=== PATIENT | male | born 1935 | race Caucasian/White ===

== ENCOUNTER 2016-09-30 11:25 | Outpatient (CLI) | payer OTHER ==
[2016-09-30 19:32] LABS: BASOPHILS % (AUTO) 0.8 %; EOSINOPHILS # (AUTO) 0.1 10^3/uL (0.0-0.7); EOSINOPHILS % (AUTO) 1.5 %; HGB - HEMOGLOBIN 14.3 g/dL (14.0-18.0); LYMPHOCYTES # (AUTO) 1.2 10^3/uL (1.5-3.5); MEAN CORPUSCULAR HEMOGLOBIN 33.5 pg (27.0-31.0); MEAN CORPUSCULAR HGB CONC 33.2 g/dL (32.0-36.0); MEAN CORPUSCULAR VOLUME 100.9 fL (80.0-94.0); MONOCYTES # (AUTO) 0.5 10^3/uL (0.0-1.0); MONOCYTES % (AUTO) 11.3 %; NEUTROPHILS # (AUTO) 2.9 10^3/uL (1.5-6.6); NEUTROPHILS % (AUTO) 61.4 %; NUCLEATED RED BLOOD CELLS AUTO 0.1 /100WBC; RED BLOOD COUNT 4.26 10^6/uL (4.70-6.10); RED CELL DISTRIBUTION WIDTH 13.6 % (12.0-15.0); UNCORRECTED WHITE BLOOD COUNT 4.7 x10^3/uL; WHITE BLOOD COUNT 4.7 x10^3/uL (4.8-10.8)
[2016-09-30 20:15] LABS: BILIRUBIN,TOTAL 0.7 mg/dL (0.2-1.0); BUN - BLOOD UREA NITROGEN 19 mg/dL (6-20); CALCIUM 8.8 mg/dL (8.5-10.3); CARBON DIOXIDE - CO2 31 mmol/L (21-32); CHLORIDE 103 mmol/L (101-111); GFR - MDRD 72 (>89); GLUCOSE 65 mg/dL (70-100); POTASSIUM 4.3 mmol/L (3.5-5.0); SODIUM 141 mmol/L (135-145); TOTAL PROTEIN 6.1 g/dL (6.7-8.2)
== END 2016-09-30 11:26 | disposition home or self-care (01) ==
LOC: LAB.F 11:25
PROVIDERS: ATTEND Internal Medicine
DX: I25.10 Atherosclerotic heart disease of native coronary artery without angina pectoris (principal); I48.91 Unspecified atrial fibrillation
CPT/HCPCS: 36415; 80053; 84443; 85025

== ENCOUNTER 2016-10-04 14:24 | Outpatient (CLI) | payer OTHER ==
[2016-10-04 19:25] LABS: IMMATURE RETIC FRACTION 0.29; RED BLOOD COUNT 4.5 10^6/uL (4.70-6.10)
[2016-10-04 19:28] LABS: FOLATE 18.31 ng/mL (5.90 - >24.8)
== END 2016-10-04 14:25 | disposition home or self-care (01) ==
LOC: LAB.F 14:24
PROVIDERS: ATTEND Internal Medicine
DX: D75.89 Other specified diseases of blood and blood-forming organs (principal)
CPT/HCPCS: 36415; 82607; 82746; 85044

== ENCOUNTER 2017-01-31 08:44 | Outpatient (CLI) | payer OTHER ==
[2017-01-31 11:51] LABS: BASOPHILS % (AUTO) 0.6 %; EOSINOPHILS # (AUTO) 0.1 10^3/uL (0.0-0.7); EOSINOPHILS % (AUTO) 2.4 %; HCT - HEMATOCRIT 43.1 % (42.0-52.0); HGB - HEMOGLOBIN 14.5 g/dL (14.0-18.0); LYMPHOCYTES # (AUTO) 1.1 10^3/uL (1.5-3.5); LYMPHOCYTES % (AUTO) 22.8 %; MEAN CORPUSCULAR HGB CONC 33.7 g/dL (32.0-36.0); MEAN CORPUSCULAR VOLUME 97.9 fL (80.0-94.0); MEAN PLATELET VOLUME 7.9 fL (7.4-11.4); MONOCYTES # (AUTO) 0.5 10^3/uL (0.0-1.0); MONOCYTES % (AUTO) 10.2 %; NEUTROPHILS # (AUTO) 3.1 10^3/uL (1.5-6.6); NUCLEATED RED BLOOD CELLS AUTO 0.1 /100WBC; RED CELL DISTRIBUTION WIDTH 12.9 % (12.0-15.0); UNCORRECTED WHITE BLOOD COUNT 4.9 x10^3/uL; WHITE BLOOD COUNT 4.9 x10^3/uL (4.8-10.8)
[2017-01-31 11:58] LABS: ALBUMIN/GLOBULIN RATIO 1.8 (1.0-2.2); BILIRUBIN,TOTAL 0.8 mg/dL (0.2-1.0); CALCIUM 8.6 mg/dL (8.5-10.3); CREATININE 0.9 mg/dL (0.6-1.2); POTASSIUM 4.1 mmol/L (3.5-5.0); TOTAL PROTEIN 6.2 g/dL (6.7-8.2)
[2017-01-31 12:02] LABS: BILIRUBIN,URINE NEGATIVE (NEGATIVE)
[2017-01-31 12:14] LABS: WBC,URINE 0-3 /HPF (0-3)
[2017-01-31 12:15] LABS: UR CULTURE IF IND NOT INDICATED
== END 2017-01-31 08:45 | disposition home or self-care (01) ==
LOC: LAB.F 08:44
PROVIDERS: ATTEND Internal Medicine
DX: F02.81 Dementia in other diseases classified elsewhere, unspecified severity, with behavioral disturbance (principal); Z79.899 Other long term (current) drug therapy
CPT/HCPCS: 36415; 80053; 80306; 81001; 84443; 85025; 87086

== ENCOUNTER 2017-04-07 08:00 | Outpatient (CLI) | payer OTHER | END 2017-04-07 08:01 | disposition home or self-care (01) | LOC: LAB.R 08:00 | PROVIDERS: ATTEND Internal Medicine | DX: R60.0 Localized edema (principal) | CPT/HCPCS: 85379 ==

== ENCOUNTER 2017-05-21 13:46 | Emergency (ER) | payer OTHER, MEDICARE ==
[2017-05-21 14:09] VITALS: BP 125/73
[2017-05-21] MEDS ORDERED: cefTRIAXone 1 GM VIAL IM STA (15:00)
[2017-05-21] MEDS ORDERED: LIDOCAINE 1% 2 ML VIAL SUBQ ONE (15:00)
--- NOTE | 2017-05-21 15:02 | ED Physician Documentation ---
History of Present Illness - Stated complaint Stated Complaint: RT LEG SWELLING/REDNESS - Chief complaint Chief Complaint: General - History obtained from History obtained from: Patient, Family (The patient has dementia and the history is taken mostly from the .) - History of Present Illness Timing: Yesterday - Additonal information Additional information: 81-year-old male with a prior history of cellulitis to his right lower extremity has developed an increase in swelling and redness to his right leg beginning yesterday. His noted a little bit of swelling around his knee which is not normal for him. He does have some venous stasis disease with redness to the lower extremity with swelling that is chronic. The difference now is involvement around the knee and above the knee. The notes that when he was standing after being in the shower that the redness extended to the proximal thigh today and he has never had redness extending into his thigh. Review of Systems Unable to obtain: Dementia (History taken from the ) Constitutional: denies: Fever Eyes: denies: Decreased vision Ears: reports: Loss of hearing. denies: Ear pain Nose: denies: Congestion Throat: denies: Sore throat Cardiac: denies: Palpitations Respiratory: denies: Dyspnea, Cough GI: denies: Abdominal Pain, Nausea, Vomiting : denies: Dysuria, Frequency Skin: denies: Rash Musculoskeletal: reports: Extremity swelling. denies: Neck pain, Back pain, Extremity pain Neurologic: denies: Generalized weakness, Focal weakness, Numbness PD PAST MEDICAL HISTORY - Past Medical History Cardiovascular: Hypertension, Coronary artery disease, Atrial fibrillation Neuro: Dementia - Past Surgical History Past Surgical History: Yes Cardiovascular: Coronary stent, Pacemaker - Present Medications Home Medications: Ambulatory Orders Medication Instructions Recorded Confirmed Diltiazem HCl [Cardizem LA] 300 mg PO DAILY 07/14/14 03/13/16 Escitalopram [Lexapro] 10 mg PO DAILY 07/14/14 03/13/16 Ramipril [Altace] 5 mg PO DAILY 07/14/14 03/13/16 Rivaroxaban [Xarelto] 20 mg PO DAILY 02/07/16 03/13/16 Amox/Clav 875/125 [Augmentin] 1 each PO Q12H #14 tablet 05/21/17 OLANZapine [Zyprexa] 05/21/17 clonazePAM [Clonazepam] 05/21/17 - Allergies Allergies/Adverse Reactions: Allergies Allergy/AdvReac Type Severity Reaction Status Date / Time morphine Allergy Unknown Verified 05/21/17 14:09 - Social History Does the pt smoke?: No Smoking Status: Never smoker Does the pt drink ETOH?: No Does the pt have substance abuse?: No - Immunizations Immunizations are current?: Yes - POLST Patient has POLST: Yes PD ED PE NORMAL - Vitals Vital signs reviewed: Yes - General General: No acute distress, Well developed/nourished - HEENT HEENT: Atraumatic, PERRL - Respiratory Respiratory: No respiratory distress - Derm Derm: Normal color, Warm and dry - Extremities Extremities: No deformity, Other (There is trace edema bilaterally to the feet which are mildly reddened with slow capillary refill. This does not appear to be the typical blanching of infection. At the knee and above there is some subtle erythema that is more evident when the patient standing and more evident distally to the medial aspect of the knee. This extends to the mid portion of the thigh and this is marked with a surgical marker.) - Neuro Neuro: No motor deficit, No sensory deficit Eye Opening: Spontaneous Motor: Obeys Commands Verbal: Oriented GCS Score: 15 - Psych Psych: Normal mood, Normal affect Results - Vitals Vitals: Vital Signs - 24 hr 05/21/17 14:04 Temperature 37.1 C Heart Rate 70 Respiratory 18 Rate Blood Pressure 125/73 O2 Saturation 97 Oxygen O2 Source Room air PD MEDICAL DECISION MAKING - ED course Complexity details: considered differential, d/w patient, d/w family ED course: 81-year-old male with new onset of redness and swelling to the distal right thigh may have acute cellulitis. He is administered Rocephin 1 g IM here and we will place him on some Augmentin. I discussed with his monitoring the margins drawn on the leg and returning for redness extending beyond the margins. Departure - Departure Disposition: 01 Home, Self Care Clinical Impression: Cellulitis Qualifiers: Site of cellulitis: extremity Site of cellulitis of extremity: lower extremity Laterality: right Qualified Code(s): L03.115 - Cellulitis of right lower limb Condition: Stable Instructions: ED Infec Skin Cellulitis Follow-Up: Devin Rojas MD [Primary Care Provider] - Prescriptions: Amox/Clav 875/125 [Augmentin] 1 each PO Q12H #14 tablet
== END 2017-05-21 15:30 | disposition home or self-care (01) ==
LOC: ED 13:46
DX: L03.115 Cellulitis of right lower limb (principal); F03.90 Unspecified dementia, unspecified severity, without behavioral disturbance, psychotic disturbance, mood disturbance, and anxiety; I10 Essential (primary) hypertension; I87.8 Other specified disorders of veins; I25.10 Atherosclerotic heart disease of native coronary artery without angina pectoris; Z95.5 Presence of coronary angioplasty implant and graft; Z95.0 Presence of cardiac pacemaker
CPT/HCPCS: 96372; 99283

== ENCOUNTER 2017-06-03 12:42 | Emergency (ER) | payer OTHER, MEDICARE ==
[2017-06-03 14:38] LABS: BASOPHILS % (AUTO) 0.5 %; EOSINOPHILS # (AUTO) 0.1 10^3/uL (0.0-0.7); HGB - HEMOGLOBIN 14.2 g/dL (14.0-18.0); LYMPHOCYTES # (AUTO) 1.2 10^3/uL (1.5-3.5); LYMPHOCYTES % (AUTO) 20.5 %; MEAN CORPUSCULAR HEMOGLOBIN 33.9 pg (27.0-31.0); MEAN CORPUSCULAR HGB CONC 34.1 g/dL (32.0-36.0); MEAN CORPUSCULAR VOLUME 99.6 fL (80.0-94.0); MONOCYTES # (AUTO) 0.6 10^3/uL (0.0-1.0); MONOCYTES % (AUTO) 10.7 %; NEUTROPHILS % (AUTO) 67.3 %; PLT - PLATELET COUNT 173 10^3/uL (130-450); RED CELL DISTRIBUTION WIDTH 13.3 % (12.0-15.0); WHITE BLOOD COUNT 5.9 x10^3/uL (4.8-10.8)
[2017-06-03 14:54] LABS: ALBUMIN 4.3 g/dL (3.2-5.5); ALBUMIN/GLOBULIN RATIO 1.9 (1.0-2.2); ALKALINE PHOSPHATASE 60 IU/L (42-121); ALT ALANINE AMINOTRANSFERASE 18 IU/L (10-60); AST ASPARTATE AMINOTRANSFERASE 23 IU/L (10-42); BILIRUBIN,TOTAL 0.4 mg/dL (0.2-1.0); BUN - BLOOD UREA NITROGEN 20 mg/dL (6-20); CALCIUM 9.1 mg/dL (8.5-10.3); CARBON DIOXIDE - CO2 27 mmol/L (21-32); CHLORIDE 102 mmol/L (101-111); CREATININE 1.2 mg/dL (0.6-1.2); GFR - MDRD 58 (>89); GLUCOSE 103 mg/dL (70-100); LIPASE 22 U/L (22-51); SODIUM 139 mmol/L (135-145); TOTAL PROTEIN 6.6 g/dL (6.7-8.2)
[2017-06-03 15:00] LABS: CRP - C-REACTIVE PROTEIN < 1.0 mg/dL (0-1.0)
--- NOTE | 2017-06-03 16:17 | ED Physician Documentation ---
History of Present Illness - Stated complaint Stated Complaint: R LEG REDNESS/SWOLLEN - Chief complaint Chief Complaint: Wound - History obtained from History obtained from: Patient, Caregiver - History of Present Illness Timing: How many weeks ago (2) Pain level max: 0 Pain level now: 0 Improved by: augmentin Worsened by: nothing - Additonal information Additional information: R LE swelling, redness x 2 weeks. Was recently on abx for cellulitis. Placed on augmentin and given IM rocephin. Redness decreased, but still has swelling to the R leg. Started after bunionectomy in March of this year. Sees Dr. Rojas as his PCP. Review of Systems Unable to obtain: Dementia Constitutional: denies: Fever Throat: denies: Sore throat Cardiac: denies: Chest pain / pressure GI: denies: Nausea, Vomiting, Diarrhea Skin: denies: Rash Musculoskeletal: denies: Neck pain, Back pain Neurologic: denies: Headache PD PAST MEDICAL HISTORY - Past Medical History Cardiovascular: Hypertension, Coronary artery disease, Atrial fibrillation Neuro: Dementia - Past Surgical History Past Surgical History: Yes Cardiovascular: Coronary stent, Pacemaker - Present Medications Home Medications: Ambulatory Orders Medication Instructions Recorded Confirmed Diltiazem HCl [Cardizem LA] 300 mg PO DAILY 07/14/14 03/13/16 Escitalopram [Lexapro] 10 mg PO DAILY 07/14/14 03/13/16 Ramipril [Altace] 5 mg PO DAILY 07/14/14 03/13/16 Rivaroxaban [Xarelto] 20 mg PO DAILY 02/07/16 03/13/16 OLANZapine [Zyprexa] 05/21/17 clonazePAM [Clonazepam] 0.25 mg 05/21/17 - Allergies Allergies/Adverse Reactions: Allergies Allergy/AdvReac Type Severity Reaction Status Date / Time morphine Allergy Unknown Verified 06/03/17 13:00 - Social History Does the pt smoke?: No Smoking Status: Never smoker Does the pt drink ETOH?: No Does the pt have substance abuse?: No - Immunizations Immunizations are current?: Yes - POLST Patient has POLST: Yes PD ED PE NORMAL - Vitals Vital signs reviewed: Yes - General General: Alert and oriented X 3, No acute distress - HEENT HEENT: Moist mucous membranes - Neck Neck: Supple, no meningeal sign - Cardiac Cardiac: RRR - Respiratory Respiratory: No respiratory distress, Clear bilaterally - Derm Derm: Warm and dry - Extremities Extremities: Other (2+ R LE pitting edema. No calf tenderness. No erythema of the leg. No drainage.) - Neuro Neuro: Alert and oriented X 3 - Psych Psych: Normal mood, Normal affect Results - Vitals Vitals: Vital Signs - 24 hr 06/03/17 06/03/17 06/03/17 12:58 15:25 18:51 Temperature 36.5 C 36.9 C Heart Rate 76 89 87 Respiratory 16 16 20 Rate Blood Pressure 149/72 H 151/95 H 173/114 H O2 Saturation 96 98 95 Oxygen O2 Source Room air - Labs Labs: Laboratory Tests 06/03/17 06/03/17 06/03/17 14:33 14:33 14:33 WBC 5.9 RBC 4.20 L Hgb 14.2 Hct 41.8 L MCV 99.6 H MCH 33.9 H MCHC 34.1 RDW 13.3 Plt Count 173 MPV 7.0 L Neut # 4.0 Lymph # 1.2 L [place] # 0.6 Eos # 0.1 Baso # 0.0 Absolute Nucleated RBC 0.01 Nucleated RBC % 0.1 ESR 2 Sodium 139 Potassium 4.2 Chloride 102 Carbon Dioxide 27 Anion Gap 10.0 BUN 20 Creatinine 1.2 Estimated GFR (MDRD) 58 L Glucose 103 H Calcium 9.1 Total Bilirubin 0.4 AST 23 ALT 18 Alkaline Phosphatase 60 C-Reactive Protein < 1.0 Total Protein 6.6 L Albumin 4.3 Globulin 2.3 Albumin/Globulin Ratio 1.9 Lipase 22 - Rads (name of study) Right lower extremity ultrasound Radiology: Prelim report reviewed, EMP read contemporaneously, See rad report ( No DVT) PD MEDICAL DECISION MAKING - ED course Complexity details: reviewed old records, reviewed results, re-evaluated patient , considered differential, d/w patient, d/w family ED course: Patient is an 81-year-old male who presents to the emergency department with right lower extremity swelling. He has recently been treated for cellulitis and the cellulitis appears to have resolved. No evidence of residual infection. No DVT. We will continue supportive care and follow-up with his PCP as scheduled this week. Patient and family counseled regarding signs and symptoms for which I believe and urgent re-evaluation would be necessary. Patient with good understanding of and agreement to plan and is comfortable going home at this time This document was made in part using voice recognition software. While efforts are made to proofread this document, sound alike and grammatical errors may occur. Departure - Departure Disposition: 01 Home, Self Care Clinical Impression: Peripheral edema Condition: Good Instructions: ED Leg Swelling Unilateral Follow-Up: Devin Rojas MD [Primary Care Provider] - Within 1 week Comments: Return if you worsen. Your ultrasound is normal today. There does not appear to be any residual infection. Discharge Date/Time: 06/03/17 18:51
--- NOTE | 2017-06-03 18:43 | Ultrasound Preliminary Report ---
Exam: US DUPLEX EXT VEINS RIGHT IMPRESSION: No evidence for deep venous thrombosis. [facility] SITE ID: [id number]
--- NOTE | 2017-06-03 18:43 | Ultrasound Report ---
EXAM: RIGHT LOWER EXTREMITY VENOUS ULTRASOUND EXAM DATE: 06/03/2017 06:15 PM. CLINICAL HISTORY: Right leg swelling and foot surgery. COMPARISON: None. TECHNIQUE: Real-time sonographic vascular imaging was performed by the pile driving supervisor through the lower extremity utilizing both color-flow and Doppler spectral analysis. Multiple telemarketing sales representative static nishant ges were saved for review. FINDINGS: Common Femoral Vein (CFV): Normal. CFV-GSV Junction: Normal. Profunda Femoral Vein (PFV): Normal. Femoral Vein (FV) Prox: Normal. Femoral Vein (FV) Mid: Normal. Femoral Vein (FV) Dist: Normal. Popliteal Vein: Normal. Posterior Tibial Veins: Normal. Peroneal Veins: Normal. Other: None. IMPRESSION: No evidence for deep venous thrombosis. [facility] Referring Provider Line: [phone] SITE ID: [id number]
[2017-06-03 18:53] VITALS: BP 173/114
== END 2017-06-03 18:51 | disposition home or self-care (01) ==
LOC: ED 12:42
DX: R60.0 Localized edema (principal); I10 Essential (primary) hypertension; I25.10 Atherosclerotic heart disease of native coronary artery without angina pectoris; I48.91 Unspecified atrial fibrillation; F03.90 Unspecified dementia, unspecified severity, without behavioral disturbance, psychotic disturbance, mood disturbance, and anxiety; Z95.0 Presence of cardiac pacemaker; Z79.01 Long term (current) use of anticoagulants
CPT/HCPCS: 36415; 80053; 83690; 85025; 85651; 86140; 99283

== ENCOUNTER 2017-06-08 11:12 | Outpatient (CLI) | payer OTHER, MEDICARE ==
[2017-06-08 13:17] LABS: ALBUMIN 4.1 g/dL (3.2-5.5); BILIRUBIN,TOTAL 0.8 mg/dL (0.2-1.0); CALCIUM 8.6 mg/dL (8.5-10.3); CREATININE 0.9 mg/dL (0.6-1.2); TOTAL PROTEIN 6.2 g/dL (6.7-8.2)
== END 2017-06-08 11:13 ==
LOC: LAB.R 11:12
PROVIDERS: ATTEND Internal Medicine
DX: R06.00 Dyspnea, unspecified (principal); R60.9 Edema, unspecified
CPT/HCPCS: 80053; 83880

== ENCOUNTER 2017-06-30 10:10 | Outpatient (CLI) | payer OTHER | END 2017-06-30 10:11 | disposition EMS.NT | LOC: EMS 10:10 | PROVIDERS: ATTEND Surgery | DX: R41.82 Altered mental status, unspecified (principal); R03.1 Nonspecific low blood-pressure reading ==

== ENCOUNTER 2017-08-14 15:15 | Outpatient (CLI) | payer OTHER | END 2017-08-14 15:16 | disposition critical access hospital (66) | LOC: EMS 15:15 | PROVIDERS: ATTEND Surgery | DX: M25.561 Pain in right knee (principal); W10.8XXA Fall (on) (from) other stairs and steps, initial encounter; Y92.098 Other place in other non-institutional residence as the place of occurrence of the external cause | CPT/HCPCS: A0425; A0429 ==

== ENCOUNTER 2017-08-14 15:43 | Emergency (ER) | payer OTHER ==
--- NOTE | 2017-08-14 17:21 | ED Physician Documentation ---
PD HPI Fall - Stated complaint Stated Complaint: FALL, R KNEE PX, L FINGER LAC - Chief complaint Chief Complaint: Trauma Hd/Nk - History obtained from History obtained from: Patient - History of Present Illness Mechanism of injury: Slipped. No: Syncope (has some dementia so might not remember the injury, but was told that he slid on stairs and fell forward. Denies pain to head nor neck. Has some bruising right proximal anterior simental/ knee, and also some tenderness left ring finger PIP knuckle area) Fall distance: Sitting position, Other (down stairs) Where injury occurred: Other (dementia care SN[facility]) Timing - onset: How many hours ago (1), Today Injury(ies) location: No: Head, Neck, Chest, Abdomen Associated symptoms: No: LOC, AMS, Nausea / vomiting Symptoms improve with: Rest Worsens with: No: Movement, Palpation Contributing factors: Anticoagulated. No: Intoxicated Similar symptoms before: Has not had sx before Recently seen: Not recently seen Review of Systems Constitutional: denies: Fever, Chills Nose: denies: Rhinorrhea / runny nose, Congestion Throat: denies: Sore throat Cardiac: denies: Chest pain / pressure, Palpitations Respiratory: denies: Cough GI: denies: Abdominal Pain, Nausea, Vomiting, Diarrhea : denies: Dysuria, Frequency Skin: denies: Rash, Lesions Neurologic: denies: Generalized weakness, Focal weakness, Numbness, Near syncope PD PAST MEDICAL HISTORY - Past Medical History Cardiovascular: Hypertension, Coronary artery disease, Atrial fibrillation - Past Surgical History Past Surgical History: Yes Cardiovascular: Coronary stent, Pacemaker - Present Medications Home Medications: Ambulatory Orders Medication Instructions Recorded Confirmed Diltiazem HCl [Cardizem LA] 300 mg PO DAILY 07/14/14 03/13/16 Escitalopram [Lexapro] 10 mg PO DAILY 07/14/14 03/13/16 Ramipril [Altace] 5 mg PO DAILY 07/14/14 03/13/16 Rivaroxaban [Xarelto] 20 mg PO DAILY 02/07/16 03/13/16 OLANZapine [Zyprexa] 05/21/17 clonazePAM [Clonazepam] 0.25 mg 05/21/17 Furosemide [Lasix] 40 mg 08/14/17 - Allergies Allergies/Adverse Reactions: Allergies Allergy/AdvReac Type Severity Reaction Status Date / Time morphine Allergy Unknown Verified 06/03/17 13:00 - Social History Does the pt smoke?: No Smoking Status: Never smoker Does the pt drink ETOH?: No Does the pt have substance abuse?: No - Immunizations Immunizations are current?: Yes - POLST Patient has POLST: Yes PD ED PE NORMAL - Vitals Vital signs reviewed: Yes - General General: Alert and oriented X 3, No acute distress, Well developed/nourished - HEENT HEENT: Atraumatic, Pharynx benign - Neck Neck: Supple, no meningeal sign, No bony TTP, No adenopathy - Male Male : Pt declined - Back Back: No spinal TTP - Derm Derm: Normal color, Warm and dry, No rash - Extremities Extremities: Other (left middle finger with mild tenderness at PIP joint without deformity. good passive ROM without muchpain. Also some mild buising anterior right proximal shininfrapatellar. No effusion and no detridment to ROM. ) - Neuro Neuro: Alert and oriented X 3, No motor deficit, No sensory deficit, Normal speech Eye Opening: Spontaneous Motor: Obeys Commands Verbal: Oriented GCS Score: 15 Results - Vitals Vitals: Oxygen O2 Source Room air - Rads (name of study) head CT Radiology: Prelim report reviewed (no ICH) PD MEDICAL DECISION MAKING - ED course Complexity details: considered differential, d/w patient Departure - Departure Disposition: 01 Home, Self Care Clinical Impression: Anticoagulant long-term use Fall down stairs Qualifiers: Encounter type: initial encounter Qualified Code(s): W10.8XXA - Fall (on) (from ) other stairs and steps, initial encounter Condition: Stable Record reviewed to determine appropriate education?: Yes Follow-Up: Devin Rojas MD [Primary Care Provider] - Comments: Your head CT appears normal. You do not have other obvious injuries. Continue usual medications. Tylenol if needed for mild pains. Follow-up with your primary care as needed. Discharge Date/Time: 08/14/17 19:14
[2017-08-14 18:22] VITALS: BP 169/82
--- NOTE | 2017-08-14 18:43 | CT Report ---
EXAM: CT HEAD EXAM DATE: 08/14/2017 06:11 PM. CLINICAL HISTORY: Fell down stairs; on [place]. COMPARISON: 07/25/2008. TECHNIQUE: Multiaxial CT images were obtained from the foramen magnum to the vertex. Reformats: Coron al. IV contrast: None. In accordance with CT protocol optimization, one or more of the following dose reduction techniques w ere utilized for this exam: automated exposure control, adjustment of mA and/or KV based on patient s ize, or use of iterative reconstructive technique. FINDINGS: Parenchyma: No intraparenchymal hemorrhage. No evidence of mass, midline shift, or CT findings of acu te infarction. [place]-white differentiation is distinct. Diffuse chronic microangiopathic white matter changes are evident. Extraaxial Spaces: Normal for age. No subdural or epidural collections identified. Ventricles: The ventricles and cortical sulci are enlarged, consistent with age-related tissue loss. Sinuses and orbits: Opacification of the right mastoid air cells seen previously. Imaged paranasal si nuses, orbits, show no significant abnormality. Bones: No evidence of fracture or calvarial defect. Other: None. IMPRESSION: Generalized age-related cortical atrophic changes without evidence of acute intracranial abnormality. [facility] Referring Provider Line: [phone] SITE ID: [id number]
--- NOTE | 2017-08-14 18:43 | CT Preliminary Report ---
Exam: CT HEAD W/O IMPRESSION: Generalized age-related cortical atrophic changes without evidence of acute intracranial abnormality. [facility] SITE ID: [id number]
== END 2017-08-14 19:14 | disposition home or self-care (01) ==
LOC: EDUNIT# → ED 15:43
DX: S80.01XA Contusion of right knee, initial encounter (principal); M79.645 Pain in left finger(s); W10.9XXA Fall (on) (from) unspecified stairs and steps, initial encounter; F03.90 Unspecified dementia, unspecified severity, without behavioral disturbance, psychotic disturbance, mood disturbance, and anxiety; I10 Essential (primary) hypertension; I25.10 Atherosclerotic heart disease of native coronary artery without angina pectoris; I48.91 Unspecified atrial fibrillation; Z95.0 Presence of cardiac pacemaker; Z79.01 Long term (current) use of anticoagulants
CPT/HCPCS: 70450; 93005; 99283